=== PATIENT | female | born 1965 | race Caucasian/White ===

== ENCOUNTER 2021-08-06 08:38 | Day surgery (SDC) | payer OTHER ==
[2021-08-05 08:12] LABS: HCG,QUAL RESULT NEGATIVE (NEGATIVE)
[~2021-08-06] VITALS: Ht 129.5 cm; Wt 66.2 kg
[2021-08-06] MEDS ORDERED: KETOROLAC TROMETHAMINE 30 MG VIAL ONE (13:02)
[2021-08-06] MEDS ORDERED: SEVOFLURANE 15 MIN GAS INH ONE (13:02)
[2021-08-06] MEDS ORDERED: ALBUTEROL MDI INHALATION 8 GM INH ONE (13:02)
[2021-08-06] MEDS ORDERED: fentaNYL CITRATE/PF 100 MCG/2 ML AMP ONE (13:02)
[2021-08-06] MEDS ORDERED: PROPOFOL 200MG/ 20ML VIAL (DIPRIVAN) IV ONE (13:02)
[2021-08-06] MEDS ORDERED: NALOXONE HCL 0.4 MG/ML AMP (NARCAN) ONE (13:02)
[2021-08-06] MEDS ORDERED: METOCLOPRAMIDE HCL 10 MG/2 ML VIAL ONE (13:02)
[2021-08-06] MEDS ORDERED: ONDANSETRON HCL 4 MG/2 ML VIAL ONE (13:02)
[2021-08-06] MEDS ORDERED: NS 1000 ML IV.SOLN IV ONE (13:02)
[2021-08-06] MEDS ORDERED: ONDANSETRON HCL 4 MG/2 ML VIAL IVP PRN (14:45)
[2021-08-06] MEDS ORDERED: hydrALAZINE HCL 20 MG/ML VIAL IVP PRN (14:45)
[2021-08-06] MEDS ORDERED: HYDROmorphone 1 MG/ML INJ. CARTRIDGE IVP PRN (14:45)
[2021-08-06] MEDS ORDERED: LABETALOL 100 MG/ 20ML VIAL IVP PRN (14:45)
[2021-08-06] MEDS ORDERED: LR 1,000 ML IV SCH (14:45)
[2021-08-06 16:18] VITALS: BP_SYST 111
== END 2021-08-06 16:16 | disposition home or self-care (01) ==
LOC: SDS 08:38 → SMU 08:49 → SDS 16:16
PROVIDERS: ATTEND Obstetrics & Gynecology
DX: N84.1 Polyp of cervix uteri (principal); N84.0 Polyp of corpus uteri; E03.9 Hypothyroidism, unspecified; Z20.822 Contact with and (suspected) exposure to COVID-19
CPT/HCPCS: 36415; 58558; 84703; 86886; 86900; 86901; 88305; 88341; 88342; 88361; C1819; J1885; J2310; J2405; J2704; J2765; J3010; J7030; U0003